=== PATIENT | female | born 1975 | race Two or more races ===

== ENCOUNTER 2020-10-30 13:34 | Emergency (ER) | payer MEDICARE, BC ==
[~2020-10-30] VITALS: Ht 157.5 cm; Wt 64.4 kg
[2020-10-30] MEDS ORDERED: cefTRIAXone SOD 1,000 MG VL IM ONE (13:45)
[2020-10-30] MEDS ORDERED: EPINEPHrine HCL 1 MG/1 ML AMP SC ONE (13:45)
[2020-10-30] MEDS ORDERED: methylPREDNISolone SOD SUCC 125 MG/2 ML VL IM ONE (13:45)
[2020-10-30] MEDS ORDERED: LIDOCAINE 1% HCL (LOCAL ANESTH.) INJ 20ML MDV ONE (13:50)
[2020-10-30 14:36] VITALS: BP 128/68
== END 2020-10-30 15:44 | disposition home or self-care (01) ==
LOC: ER 13:34
DX: T78.40XA Allergy, unspecified, initial encounter (principal); J02.9 Acute pharyngitis, unspecified; H60.92 Unspecified otitis externa, left ear; K21.9 Gastro-esophageal reflux disease without esophagitis; Z90.49 Acquired absence of other specified parts of digestive tract; Y92.89 Other specified places as the place of occurrence of the external cause
CPT/HCPCS: 96372; 99284; J0171; J0696; J2001; J2930